=== PATIENT | male | born 1960 | race Caucasian/White ===

== ENCOUNTER 2021-05-27 18:18 | Inpatient (IN) | payer SELFPAY ==
[~2021-05-27] VITALS: Ht 177.8 cm; Wt 82.1 kg
[2021-05-27] MEDS ORDERED: ACETAMINOPHEN 325 MG TAB ONE (18:44)
[2021-05-27] MEDS ORDERED: SODIUM CHLORIDE 0.9% 1000ML 1,000 ML ONE (18:45)
[2021-05-27 18:52] LABS: BASOPHILS % 0.3 % (0.0-1.0); EOSINOPHILS % 0.2 % (0.0-6.0); HEMATOCRIT 43.7 % (38.2-49.6); HEMOGLOBIN 14.3 g/dL (14.0-18.0); LYMPHOCYTES # (AUTO) 0.7 (1.0-3.2); LYMPHOCYTES % 5.6 % (18.0-39.1); MEAN CORPUSCULAR HEMOGLOBIN 30.8 pg (28-32); MEAN CORPUSCULAR HGB CONC 32.7 g/dL (31-35); MEAN CORPUSCULAR VOLUME 94.2 fL (81-99); MONOCYTES # (AUTO) 0.7 (0.2-0.8); MONOCYTES % 6.4 % (4.4-11.3); NEUTROPHILS # (AUTO) 10.1 (2.1-6.9); NEUTROPHILS % 87.2 % (38.7-80.0); PLATELET COUNT 129 x10e3/uL (140-360); RED BLOOD COUNT 4.64 x10e6/uL (4.3-5.7); RED CELL DISTRIBUTION WIDTH 13.6 % (11.7-14.4)
[2021-05-27] MEDS: CEFTRIAXONE 1 GM in SODIUM CHLORIDE 0.9% 50ML 50 ML IV SCH (18:54)
[2021-05-27] MEDS ORDERED: ACETAMINOPHEN 325 MG TAB PO ONE (19:00)
[2021-05-27 19:05] LABS: ALBUMIN 4.3 g/dL (3.5-5.0); ALBUMIN/GLOBULIN RATIO 1.4 (0.8-2.0); ANION GAP 15.8 mmol/L (8-16); CALCIUM 9.2 mg/dL (8.4-10.2); CREATININE, SERUM 1.04 mg/dL (0.72-1.25); POTASSIUM 3.8 mmol/L (3.5-5.1)
[2021-05-27 19:34] LABS: B-TYPE NATRIURETIC PEPTIDE2 19.2 pg/mL (0-100)
[2021-05-27 19:35] LABS: CREATINE KINASE MB 0.5 ng/mL (0-5.0)
[2021-05-27 20:03] LABS: CLARITY,URINE CLEAR (CLEAR); COLOR,URINE YELLOW (YELLOW); LEUKOCYTE ESTERASE ,URINE NEGATIVE (NEGATIVE)
[2021-05-27 20:04] LABS: AMPHETAMINES SCREEN,URINE NEGATIVE (NEGATIVE); BENZODIAZEPINES SCREEN,URINE NEGATIVE (NEGATIVE); KETONES,URINE TRACE (NEGATIVE); NITRITE,URINE NEGATIVE (NEGATIVE); PHENCYCLIDINE SCREEN,URINE NEGATIVE (NEGATIVE); PROTEIN,URINE DIPSTICK NEGATIVE (NEGATIVE); URINE UROBILINOGEN 0.2 mg/dL (0.2 - 1)
[2021-05-27 20:18] LABS: BACTERIA,URINE FEW /HPF; EPITHELIAL CELLS,URINE RARE /LPF; RBC,URINE 0-5 /HPF (0-5); TRANSITIONAL EPI CELLS,URINE RARE; WBC,URINE (MAN) 0-5 /HPF (0-5)
[2021-05-27 21:29] LABS: BAND NEUTROPHILS % (MANUAL) 7 %; EOSINOPHILS % (MANUAL) 1 % (0-7); LYMPHOCYTES % (MANUAL) 6 % (19-48); MONOCYTES % (MANUAL) 9 % (3.4-9.0); NEUTROPHILS % (MANUAL) 77 % (40-74)
[2021-05-27 21:30] LABS: PLATELET ESTIMATE ADEQUATE; PLATELET MORPHOLOGY COMMENT NORMAL; RBC MORPHOLOGY COMMENT NORMAL
[2021-05-27] MEDS ORDERED: GUAIFENESIN/DEXTROMETHORPHAN LIQD 5 ML UDC NG PRN (21:30)
[2021-05-27 22:35] VITALS: BP 109/74
[2021-05-27] MEDS: ASCORBIC ACID 500 MG TAB PO SCH (23:31)
[2021-05-27] MEDS: BENZONATATE 100 MG CAP PO SCH (23:31)
[2021-05-28 01:06] VITALS: BP 112/68
[2021-05-28 05:03] VITALS: BP 114/62
[2021-05-28] MEDS ORDERED: GUAIFENESIN/DEXTROMETHORPHAN 237 ML SYRUP PO PRN (06:45)
[2021-05-28] MEDS: FAMOTIDINE 20 MG TAB PO SCH ×2 (07:30→17:20)
[2021-05-28 07:51] VITALS: BP 117/83
[2021-05-28] MEDS: CHOLECALCIFEROL 400 UNIT TAB PO SCH (09:27)
[2021-05-28] MEDS: ZINC SULFATE 220 MG CAP PO SCH (09:27)
[2021-05-28] MEDS: BENZONATATE 100 MG CAP PO SCH ×3 (09:27→20:05)
[2021-05-28] MEDS: LORATADINE 10 MG TAB PO SCH (09:27)
[2021-05-28] MEDS: ASCORBIC ACID 500 MG TAB PO SCH ×2 (09:27→17:20)
[2021-05-28 11:49] VITALS: BP 131/75
[2021-05-28] MEDS ORDERED: REMDESIVIR 200MG 200 MG in SODIUM CHLORIDE 0.9% 100 ML IV ONE (15:00)
[2021-05-28 15:58] VITALS: BP 123/72
[2021-05-28] MEDS: ENOXAPARIN SOD INJ 40 MG/0.4 ML SYR SC SCH (17:20)
[2021-05-28] MEDS: CEFTRIAXONE 1 GM in SODIUM CHLORIDE 0.9% 50ML 50 ML IV SCH (19:52)
[2021-05-28 20:00] VITALS: BP 117/66
[2021-05-29] VITALS (9 sets, daily range): BP systolic 95–139; BP diastolic 72–86
[2021-05-29] MEDS: FAMOTIDINE 20 MG TAB PO SCH ×2 (07:30→15:04)
[2021-05-29] MEDS: CHOLECALCIFEROL 400 UNIT TAB PO SCH (09:34)
[2021-05-29] MEDS: ASCORBIC ACID 500 MG TAB PO SCH ×2 (09:34→15:04)
[2021-05-29] MEDS: BENZONATATE 100 MG CAP PO SCH ×3 (09:34→20:01)
[2021-05-29] MEDS: ZINC SULFATE 220 MG CAP PO SCH (09:34)
[2021-05-29] MEDS: LORATADINE 10 MG TAB PO SCH (09:34)
[2021-05-29 11:04] LABS: BASOPHILS % 0.4 % (0.0-1.0); EOSINOPHILS # (AUTO) 0.1 (0.0-0.4); EOSINOPHILS % 0.7 % (0.0-6.0); HEMATOCRIT 43.1 % (38.2-49.6); HEMOGLOBIN 13.7 g/dL (14.0-18.0); LYMPHOCYTES # (AUTO) 1.6 (1.0-3.2); LYMPHOCYTES % 14.4 % (18.0-39.1); MEAN CORPUSCULAR HEMOGLOBIN 30.9 pg (28-32); MEAN CORPUSCULAR HGB CONC 31.8 g/dL (31-35); MEAN CORPUSCULAR VOLUME 97.1 fL (81-99); MONOCYTES # (AUTO) 0.6 (0.2-0.8); MONOCYTES % 5.1 % (4.4-11.3); PLATELET COUNT 110 x10e3/uL (140-360); RED BLOOD COUNT 4.44 x10e6/uL (4.3-5.7); RED CELL DISTRIBUTION WIDTH 13.9 % (11.7-14.4)
[2021-05-29 11:32] LABS: ALBUMIN 3.6 g/dL (3.5-5.0); ALBUMIN/GLOBULIN RATIO 1.2 (0.8-2.0); ANION GAP 11.1 mmol/L (8-16); CALCIUM 8.6 mg/dL (8.4-10.2); CREATININE, SERUM 0.75 mg/dL (0.72-1.25); POTASSIUM 4.1 mmol/L (3.5-5.1)
[2021-05-29 11:34] LABS: CHOL/HDL RATIO 3.2 (3.9-4.7)
[2021-05-29] MEDS ORDERED: REMDESIVIR 100MG 100 MG in SODIUM CHLORIDE 0.9% 100 ML IV SCH (14:00)
[2021-05-29] MEDS: ENOXAPARIN SOD INJ 40 MG/0.4 ML SYR SC SCH (15:04)
[2021-05-29] MEDS: CEFTRIAXONE 1 GM in SODIUM CHLORIDE 0.9% 50ML 50 ML IV SCH (17:54)
[2021-05-30] VITALS (11 sets, daily range): BP systolic 106–140; BP diastolic 64–86
[2021-05-30] MEDS: ZINC SULFATE 220 MG CAP PO SCH (08:43)
[2021-05-30] MEDS: CHOLECALCIFEROL 400 UNIT TAB PO SCH (08:43)
[2021-05-30] MEDS: ASCORBIC ACID 500 MG TAB PO SCH ×2 (08:43→17:13)
[2021-05-30] MEDS: BENZONATATE 100 MG CAP PO SCH ×3 (08:43→21:23)
[2021-05-30] MEDS: LORATADINE 10 MG TAB PO SCH (08:43)
[2021-05-30] MEDS: FAMOTIDINE 20 MG TAB PO SCH ×2 (08:43→17:13)
[2021-05-30] MEDS: ENOXAPARIN SOD INJ 40 MG/0.4 ML SYR SC SCH (17:13)
[2021-05-31 00:55] VITALS: BP 136/71
[2021-05-31 00:56] VITALS: BP 136/71
[2021-05-31 05:28] VITALS: BP 104/72
[2021-05-31 05:32] VITALS: BP 104/72
[2021-05-31] MEDS: FAMOTIDINE 20 MG TAB PO SCH (07:28)
[2021-05-31 07:50] VITALS: BP 115/81
[2021-05-31] MEDS: CHOLECALCIFEROL 400 UNIT TAB PO SCH (08:35)
[2021-05-31] MEDS: ZINC SULFATE 220 MG CAP PO SCH (08:35)
[2021-05-31] MEDS: ASCORBIC ACID 500 MG TAB PO SCH (08:35)
[2021-05-31] MEDS: LORATADINE 10 MG TAB PO SCH (08:35)
[2021-05-31] MEDS: BENZONATATE 100 MG CAP PO SCH (08:35)
[2021-05-31 08:50] VITALS: BP 115/81
[2021-05-31] MEDS ORDERED: FAMOTIDINE20 MG PO (08:56)
[2021-05-31] MEDS ORDERED: ZINC SULFATE50 MG PO (08:56)
[2021-05-31] MEDS ORDERED: Cholecalciferol PO (08:56)
[2021-05-31] MEDS ORDERED: ASCORBIC ACID500 MG PO (08:56)
[2021-05-31] MEDS ORDERED: LORATADINE10 MG PO (08:56)
[2021-05-31] MEDS ORDERED: TESSALON PERLE100 MG PO (08:56)
== END 2021-05-31 10:34 | disposition home or self-care (01) | DRG 871 ==
LOC: ER 18:30 → ERHOLD 21:03 → MED/SURG3 22:16 → IMCU 05-29 20:58
PROVIDERS: ADMIT Internal Medicine; ATTEND Internal Medicine
DX: A41.89 Other specified sepsis (principal); U07.1 COVID-19; J12.82 Pneumonia due to coronavirus disease 2019; J96.01 Acute respiratory failure with hypoxia; N17.9 Acute kidney failure, unspecified; F17.210 Nicotine dependence, cigarettes, uncomplicated; R73.9 Hyperglycemia, unspecified
CPT/HCPCS: 36415; 71045; 80053; 80061; 80307; 81001; 82550; 82553; 82948; 83036; 83605; 83690; 83880; 84484; 85025; 87040; 93005; 96360; 99284; J0456; J0696; J1650; J7030; J7050; U0002